=== PATIENT | male | born 1985 | race Caucasian/White ===

== ENCOUNTER → 2020-09-26 | Outpatient (CLI) | payer BC ==
[2020-09-26 12:05] LABS: HEMATOCRIT 45.9 % (42.0-52.0); MEAN CORPUSCULAR HEMOGLOBIN 30.3 pg (27.0-33.0); MEAN CORPUSCULAR HGB CONC 32.7 g/dl (32.0-36.5); MEAN CORPUSCULAR VOLUME 92.7 fl (80.0-96.0); PLATELET COUNT, AUTOMATED 265 10^3/uL (150-450); RED BLOOD COUNT 4.95 10^6/uL (4.30-6.10); WHITE BLOOD COUNT 5.5 10^3/uL (4.0-10.0)
[2020-09-26 12:15] LABS: ALBUMIN 4.2 GM/DL (3.2-5.2); BILIRUBIN,TOTAL 0.6 MG/DL (0.2-1.0); CALCIUM LEVEL 8.9 MG/DL (8.5-10.1); CHOLESTEROL RISK RATIO 4.415 (<5); CREATININE FOR GFR 2.01 MG/DL (0.70-1.30); GLOMERULAR FILTRATION RATE 40.4 (>60); POTASSIUM SERUM 4.1 MEQ/L (3.5-5.1); TOTAL PROTEIN 7.9 GM/DL (6.4-8.2)
== END ==
LOC: M WUC 09:08
PROVIDERS: ATTEND Family Medicine
DX: Z00.00 Encounter for general adult medical examination without abnormal findings (principal)

== ENCOUNTER → 2020-09-26 | Outpatient (CLI) | payer BC ==
--- NOTE | 2020-09-26 11:36 | REP ---
INDICATION: M54.5 LOW BACK PAIN. COMPARISON: Abdomen/pelvis CT without IV contrast dated 07/29/2015. TECHNIQUE: There are five views. FINDINGS: Vertebral body heights, interspacing common alignment are normal. There is a striated appearance of the L4 vertebral body compatible with vertebral hemangioma. This was also identified on the comparison CT. The pedicles are unremarkable. The facets are unremarkable. There is no spondylolysis or spondylolisthesis. The sacroiliac articulations are unremarkable. IMPRESSION: L4 vertebral body hemangioma. Otherwise, negative lumbar spine plain film study. <Electronically signed by Lambert Hair > 09/26/20 [id number]
== END ==
LOC: M WUC 09:04
PROVIDERS: ATTEND Physician Assistant
DX: D18.09 Hemangioma of other sites (principal); M54.5 Low back pain

== ENCOUNTER → 2020-10-04 | Outpatient (CLI) | payer BC | LOC: M WUC 13:29 | PROVIDERS: ATTEND Family Medicine | DX: R53.81 Other malaise (principal) ==

== ENCOUNTER → 2022-04-24 | Outpatient (REF) | payer BC ==
[2022-04-24 17:44] LABS: TOTAL PROTEIN,RANDOM URINE 123.8 MG/DL (0.0-14.0)
== END ==
LOC: M LAB REF 17:01
PROVIDERS: ATTEND Nurse Practitioner Family
DX: R80.9 Proteinuria, unspecified (principal)

== ENCOUNTER → 2022-05-31 | Outpatient (CLI) | payer BC | LOC: M WHC 07:48 | PROVIDERS: ATTEND Nurse Practitioner Family | DX: N28.1 Cyst of kidney, acquired (principal); N17.9 Acute kidney failure, unspecified; N20.0 Calculus of kidney ==

== ENCOUNTER → 2022-06-06 | Outpatient (REF) | payer BC ==
[2022-06-06 17:49] LABS: TOTAL PROTEIN,RANDOM URINE 78.2 MG/DL (0.0-14.0)
[2022-06-06 17:53] LABS: CREATININE,RANDOM URINE 29.6 MG/DL
== END ==
LOC: M LAB REF 16:57
PROVIDERS: ATTEND Nurse Practitioner Family
DX: R80.9 Proteinuria, unspecified (principal)

== ENCOUNTER → 2024-03-25 | Outpatient (REF) | payer BC ==
[2024-03-26 15:06] LABS: TOTAL PROTEIN,RANDOM URINE 103.7 MG/DL (0.0-14.0)
[2024-03-26 15:11] LABS: CREATININE,RANDOM URINE 49.4 MG/DL
== END ==
LOC: M LAB REF 13:26
PROVIDERS: ATTEND Nurse Practitioner Family
DX: R80.9 Proteinuria, unspecified (principal); N18.32 Chronic kidney disease, stage 3b

== ENCOUNTER → 2024-05-11 | Outpatient (CLI) | payer BC | LOC: M RAD 09:18 | PROVIDERS: ATTEND Nurse Practitioner Family | DX: N17.8 Other acute kidney failure (principal); N20.0 Calculus of kidney ==